=== PATIENT | female | born 1995 | race African-American/Black ===

== ENCOUNTER 2017-01-31 13:52 | Emergency (ER) | payer MEDICAID, OTHER ==
[~2017-01-31] VITALS: Ht 172.7 cm; Wt 108.0 kg
[2017-01-31] MEDS ORDERED: KETOROLAC 60MG/2ML VIAL IM ONE (15:30)
[2017-01-31] MEDS ORDERED: CYCLOBENZAPRINE 10MG TABLET PO ONE (15:30)
[2017-01-31 18:20] VITALS: BP 112/72
== END 2017-01-31 19:01 | disposition home or self-care (01) ==
LOC: ER 14:40
DX: M54.5 Low back pain (principal); M25.511 Pain in right shoulder; F12.10 Cannabis abuse, uncomplicated; W19.XXXA Unspecified fall, initial encounter; Y93.89 Activity, other specified; Y92.89 Other specified places as the place of occurrence of the external cause; Y99.8 Other external cause status
CPT/HCPCS: 72100; 73030; 96372; 99284; J1885; Z7610

== ENCOUNTER 2017-02-08 00:26 | Emergency (ER) | payer MEDICAID, OTHER ==
[~2017-02-08] VITALS: Ht 172.7 cm; Wt 108.0 kg
[2017-02-08 05:50] VITALS: BP 118/75
== END 2017-02-08 05:56 | disposition home or self-care (01) ==
LOC: ER 00:26
DX: S39.012A Strain of muscle, fascia and tendon of lower back, initial encounter (principal); X50.0XXA Overexertion from strenuous movement or load, initial encounter; Y93.89 Activity, other specified; Y92.89 Other specified places as the place of occurrence of the external cause; Y99.8 Other external cause status
CPT/HCPCS: 99283

== ENCOUNTER 2017-05-13 22:06 | Emergency (ER) | payer MEDICAID, OTHER ==
[~2017-05-13] VITALS: Ht 172.7 cm; Wt 112.0 kg
[2017-05-13 22:58] VITALS: BP 110/54
== END 2017-05-14 | disposition left against medical advice (07) ==
LOC: ER 22:06
DX: R10.9 Unspecified abdominal pain (principal); Z53.21 Procedure and treatment not carried out due to patient leaving prior to being seen by health care provider